=== PATIENT | female | born 1980 | race Caucasian/White ===

== ENCOUNTER 2017-01-14 20:03 | Emergency (ER) | payer OTHER ==
[~2017-01-14] VITALS: Ht 160 cm; Wt 85.3 kg
[2017-01-14] MEDS ORDERED: NORCO 5-325 TA1 EACH PO (20:27)
[2017-01-14] MEDS ORDERED: ZOVIRAX400 MG PO (20:27)
[2017-01-14 20:43] LABS: ABSOLUTE NEUTROPHILS 4.9 thou/uL (1.4-8.2); BASOPHILS 0.2 % (0.0-2.0); EOSINOPHILS 0.6 % (0.0-3.0); HEMATOCRIT 39.3 % (37.0-47.0); HEMOGLOBIN 13.7 gm/dL (12.0-15.0); LYMPHOCYTES 30.9 % (24.0-44.0); MCH 29.6 pg (26.0-34.0); MCV 84.6 fL (80.0-100.0); MONOCYTES 11.4 % (1.0-8.0); PLATELET COUNT 183 thou/uL (150-400); POLYS 56.9 % (36.0-66.0); RBC 4.64 mil/uL (4.20-5.00); RDW 12.9 % (10.5-14.5); WBC 8.6 thou/uL (4.0-11.0)
[2017-01-14 20:44] LABS: MANUAL DIFF NO
[2017-01-14 20:51] LABS: CALCIUM 8.8 mg/dL (8.5-10.1); CREATININE 0.8 mg/dL (0.6-1.0); POTASSIUM 3.9 mmol/L (3.5-5.1)
[2017-01-14 22:02] LABS: URINE BILIRUBIN NEGATIVE (Negative); URINE BLOOD 3+ (Negative); URINE COLOR YELLOW; URINE GLUCOSE-RANDOM* 2+ (Negative); URINE KETONES TRACE (Negative); URINE NITRITE NEGATIVE (Negative); URINE PROTEIN (DIPSTICK) 1+ (Negative); URINE SPECIFIC GRAVITY 1.025 (1.003-1.035); URINE UROBILINOGEN 0.2 E.U./dl (0.2-1.0)
[2017-01-14 22:20] LABS: SQUAMOUS 0-3 Few /LPF (0-3)
[2017-01-14 22:21] LABS: BACTERIA 1-9 Few /HPF (None Seen); CRYSTALS None Seen /LPF (None Seen); TRANSITIONAL EPITHEL CELL 0-3 Few /LPF (None Seen); URINE RBC >20 Many /HPF (0-2); URINE WBC 0-5 Rare /HPF (0-5)
[2017-01-14 22:22] LABS: HYALINE CASTS 0-3 Few /LPF (None Seen)
[2017-01-14 23:25] VITALS: BP 123/77
== END 2017-01-14 23:28 | disposition home or self-care (01) ==
LOC: ER 20:03
PROVIDERS: Emergency Medicine; Nurse Practitioner
DX: A60.00 Herpesviral infection of urogenital system, unspecified (principal); R30.0 Dysuria; R10.2 Pelvic and perineal pain; F17.210 Nicotine dependence, cigarettes, uncomplicated

== ENCOUNTER 2017-02-04 17:35 | Emergency (ER) | payer OTHER ==
[~2017-02-04] VITALS: Ht 160 cm; Wt 86.2 kg
[~2017-02-04 17:35] MED LIST: NORCO 5-325 TA1 EACH PO; ZOVIRAX400 MG PO
[2017-02-04 18:42] LABS: URINE BILIRUBIN NEGATIVE (Negative); URINE BLOOD 1+ (Negative); URINE COLOR YELLOW; URINE GLUCOSE-RANDOM* 3+ (Negative); URINE KETONES NEGATIVE (Negative); URINE PROTEIN (DIPSTICK) TRACE (Negative); URINE SPECIFIC GRAVITY 1.015 (1.003-1.035); URINE UROBILINOGEN 0.2 E.U./dl (0.2-1.0)
[2017-02-04] MEDS ORDERED: NOHOMEMEDICATIONS (18:42)
[2017-02-04 18:43] LABS: URINE LEUKOCYTES-REFLEX 1+ (Negative)
[2017-02-04 18:53] LABS: CASTS None Seen /LPF (None Seen); CRYSTALS None Seen /LPF (None Seen); SQUAMOUS 4-10 Moderate /LPF (0-3); URINE WBC-REFLEX >25 Many /HPF (0-5); YEAST-REFLEX Present (None Seen)
[2017-02-04 18:54] LABS: URINE RBC None Seen /HPF (0-2)
[2017-02-04] MEDS ORDERED: DIFLUCAN150 MG PO (20:10)
[2017-02-04] MEDS ORDERED: BACTRIM DS TAB1 EACH PO (20:10)
[2017-02-04] MEDS ORDERED: PYRIDIUM200 MG PO (20:10)
[2017-02-04 20:33] VITALS: BP 141/83
== END 2017-02-04 20:34 | disposition home or self-care (01) ==
LOC: ER 17:35
PROVIDERS: Emergency Medicine
DX: N39.0 Urinary tract infection, site not specified (principal); E11.9 Type 2 diabetes mellitus without complications; F17.210 Nicotine dependence, cigarettes, uncomplicated; Z98.890 Other specified postprocedural states